=== PATIENT | female | born 1985 | race Two or more races ===

== ENCOUNTER 2018-12-18 02:49 | Emergency (ER) | payer SELFPAY ==
[~2018-12-18] VITALS: Ht 157.5 cm; Wt 68.0 kg
[2018-12-18 02:50] VITALS: Ht 157.5 cm; Wt 68.0 kg
[2018-12-18 03:21] LABS: BASOPHIL % 0.4 % (0-2)
[2018-12-18 03:22] LABS: PLATELET COUNT 413 x10^3mcL (130-400); RED CELL DISTRIBUTION WIDTH 19.3 % (11.5-14.5)
[2018-12-18 03:38] LABS: CALCIUM 8.5 mg/dL (8.5-10.1); CARBON DIOXIDE 26.2 mmol/L (21-32); CHLORIDE SERUM 104 mmol/L (98-107); CREATININE SERUM 0.6 mg/dL (0.6-1.0); GFR1 > 60 mL/min; GLUCOSE SERUM 107 mg/dL (74-106); SODIUM SERUM 140 mmol/L (136-145)
[2018-12-18 03:43] LABS: ALBUMIN 3.9 g/dL (3.4-5.0); ALKALINE PHOSPHATASE 106 U/L (46-116); ALT/SGPT 12 U/L (14-59); AST/SGOT 12 U/L (15-37); TOTAL PROTEIN, SERUM 7.9 g/dL (6.4-8.2)
[2018-12-18 04:27] LABS: microscopic required? YES; urine erythrocyte TRACE (NEGATIVE)
[2018-12-18 04:35] LABS: AMPHETAMINE QUAL UR NONE DETECTED (See below)
[2018-12-18 06:04] VITALS: BP 107/82
== END 2018-12-18 06:04 | disposition home or self-care (01) ==
LOC: ED 02:49
PROVIDERS: Emergency Medicine
DX: R51 Headache (principal); R55 Syncope and collapse; Z98.890 Other specified postprocedural states
CPT/HCPCS: J1885